=== PATIENT | female | born 1970 | race Caucasian/White ===

== ENCOUNTER 2023-04-12 15:15 | Emergency (ER) | payer OTHER, SELFPAY ==
[2023-04-12 15:50] VITALS: BP 137/97; PULSE 90; RESP 20; O2SAT 98; BMI 33.3
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
[2023-04-12] MEDS: ONDANSETRON 4 MG RAPDIS TABLET SL (17:10)
[2023-04-12] MEDS: KETOROLAC TROMETHAMINE 60 MG/2 ML VIAL IM (17:11)
[2023-04-12] MEDS: ORPHENADRINE 60 MG/ 2 ML VIAL IM (17:11)
== END 2023-04-12 17:22 | disposition home or self-care (01) ==
PROVIDERS: Emergency Provider Emergency Medicine
DX: S09.8XXA Other specified injuries of head, initial encounter (principal); S13.9XXA Sprain of joints and ligaments of unspecified parts of neck, initial encounter; S00.33XA Contusion of nose, initial encounter; M54.50 Low back pain, unspecified; Y04.2XXA Assault by strike against or bumped into by another person, initial encounter
CPT/HCPCS: 70450; 70486; 72125; 96372; 99285